=== PATIENT | female | born 1995 | race Caucasian/White ===

== ENCOUNTER 2023-11-15 17:58 | Inpatient (IN) | payer SELFPAY ==
--- NOTE | 2023-11-15 | US_ITS ---
The [address] [address] Patient Name: SOLOMON KHAN MRN: [facility]:[id number] date: 1995 Sex: F Assigned Patient Location: [facility] Current Patient Location: [facility] Accession/Order Number: [id number] Exam Date: 11/15/2023 19:00 Report Date: 11/15/2023 21:56 At the request of: KEYSHAWN LAMA Procedure: US OB cervical length US PELVIS: OB Greater than 14 weeks HISTORY: 28 year old G 1 P 0 AB 0 female presents for US evaluation. LMP: Not provided in the notes/history on order. Limited care with cramping TECHNIQUE: Ultrasound performed of the pelvis using static images with keith scale, M-mode and color doppler. This exam is performed in the emergency room setting to evaluate viability. As such, it is not protocoled to evaluate anatomy as that should be performed on an outpatient basis at the patient's FACILITY SUPERVISOR office. COMPARISON: None. FINDINGS: Summary: Number of Fetuses: Singlefetus in cephalic position. Placenta: Fundal weight: 3507 g +/- 26.04 g 7 lbs. 12 oz. +/- 1 pound 3 ounces heart: 137 bpm. Cervix: Cervical length: 1.7 cm. Cervix: Closed. JOSE L: Q1: 0.0 cm Q2: 3.4 cm Q3: 1.3 cm Q4: 2.1 cm Total JOSE L: 628 cm. (Normal 8-18 cm)* Largest pocket: (less than 8 cm) Measurements: BPD: 9.3 cm = 30 weeks, 0 days. HC: 33.7 cm = 30 weeks, 5 days. AC: 37 cm =38 weeks, 4 days. FL: 7.3 cm = 37 weeks, 2 days. Anatomy: Limited due to advanced gestational age. * Limited evaluation of the spine due to lie *Kidneys: *Bladder: *Stomach: US/US OB cervical length IMPRESSION: 1. Viable Chan fetus IUP 2. AUA Estimated Gestational Age by US: 38 weeks 3 days +/- 2 weeks 5 days by ultrasound. 3. Estimated due date by AUA: November 25, 2023. 4. Cervix is shortened 1.7 cm. For other findings re size and dates, please see summary above. Electronically authenticated by: TONY PHILLIPS Date: 11/15/2023 21:56
[2023-11-15 18:17] VITALS: BP 114/67; PULSE 74
--- NOTE | 2023-11-15 18:35 | US_ITS ---
[address] [address] Patient Name: SOLOMON KHAN MRN: [id number] date: 1995 Sex: F Assigned Patient Location: [facility] Current Patient Location: [facility] Accession/Order Number: [id number] Exam Date: 11/15/2023 19:00 Report Date: 11/15/2023 21:56 At the request of: KEYSHAWN LAMA Procedure: US OB anatomy US PELVIS: OB Greater than 14 weeks HISTORY: 28 year old G 1 P 0 AB 0 female presents for US evaluation. LMP: Not provided in the notes/history on order. Limited care with cramping TECHNIQUE: Ultrasound performed of the pelvis using static images with keith scale, M-mode and color doppler. This exam is performed in the emergency room setting to evaluate viability. 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 COMPARISON: None. FINDINGS: Summary: Number of Fetuses: Singlefetus in cephalic position. Placenta: Fundal weight: 3507 g +/- 26.04 g 7 lbs. 12 oz. +/- 1 pound 3 ounces heart: 137 bpm. Cervix: Cervical length: 1.7 cm. Cervix: Closed. JOSE L: Q1: 0.0 cm Q2: 3.4 cm Q3: 1.3 cm Q4: 2.1 cm Total JOSE L: 628 cm. (Normal 8-18 cm)* Largest pocket: (less than 8 cm) Measurements: BPD: 9.3 cm = 30 weeks, 0 days. HC: 33.7 cm = 30 weeks, 5 days. AC: 37 cm =38 weeks, 4 days. FL: 7.3 cm = 37 weeks, 2 days. Anatomy: Limited due to advanced gestational age. * Limited evaluation of the spine due to lie *Kidneys: *Bladder: *Stomach: US/US OB anatomy IMPRESSION: 1. Viable Chan fetus IUP 2. AUA Estimated Gestational Age by US: 38 weeks 3 days +/- 2 weeks 5 days by ultrasound. 3. Estimated due date by AUA: November 25, 2023. 4. Cervix is shortened 1.7 cm. For other findings re size and dates, please see summary above. Electronically authenticated by: TONY PHILLIPS Date: 11/15/2023 21:56
[2023-11-15 19:16] LABS: Basophils Percent Auto 0.4 % (0.2-2.0); Eosinophils Absolute Auto 0.1 10^3/uL (0.0-0.7); Eosinophils Percent Auto 0.7 % (0.9-7.0); Hematocrit 30.7 % (36.0-48.0); Hemoglobin 9.7 g/dL (12.0-16.0); Immature Granulocytes Abs Auto 0.02 10^3/uL (0.00-0.03); Immature Granulocytes Pct Auto 0.2 % (0.0-0.5); Lymphocytes Absolute Auto 1.5 10^3/uL (1.2-3.8); Lymphocytes Percent Auto 14.8 % (20.5-60.0); Mean Corpuscular HGB Conc 31.6 g/dL (29.9-35.2); Mean Corpuscular Hemoglobin 28.1 pg (26.7-34.0); Mean Platelet Volume 11.1 fL (9.5-13.5); Monocytes Absolute Auto 0.7 10^3/uL (0.3-0.8); Monocytes Percent Auto 6.6 % (1.7-12.0); Neutrophils Percent Auto 77.3 % (43.0-75.0); Platelet Count 295 10^3/uL (150-450); Red Blood Count 3.45 10^6/uL (4.20-5.40); Red Cell Distribution Width 15.5 % (11.0-15.0); White Blood Count 10.4 10^3/uL (4.0-11.0)
[2023-11-15 19:31] LABS: Estimated Average Glucose 120 mg/dL; Glycohemoglobin A1C 5.8 % (4.5-6.2)
[2023-11-15] MEDS: AMPICILLIN SODIUM 2,000 MG in 0.9 % SODIUM CHLORIDE 100 ML 200 MG IV (19:42)
[2023-11-15] MEDS: 0.9 % SODIUM CHLORIDE 1,000 ML 125 ML IV (19:43)
[2023-11-15 19:47] VITALS: BP 110/69; PULSE 65
[2023-11-15 21:47] VITALS: BP 110/70; PULSE 65
[2023-11-15] MEDS: OXYTOCIN/0.9 % SODIUM CHLORIDE 10 UNITS/500 ML PLAST..BAG 6 UNIT IV (22:13)
[2023-11-15 22:15] VITALS: BP 113/68; PULSE 77
[2023-11-15 23:15] VITALS: BP 110/63; PULSE 67
[2023-11-15 23:56] VITALS: BP 128/91; PULSE 63
[2023-11-16] VITALS (48 sets, daily range): BP systolic 96–177; BP diastolic 52–100; PULSE 63–84; TEMP 36.2–36.9; O2SAT 95–99
--- NOTE | 2023-11-16 00:53 | P.OBHP_ITS ---
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, poor history, 2-3 50% -2 History of Present care: none Ultrasounds: none Review of Systems ROS Status of ROS: other (limited dt south korean speaking only) Meds Home Medications and Allergies Home Medications ?Medication ?Instructions ?Recorded ?Confirmed ?Type No Known Home Medications 11/15/23 11/15/23 History Allergies Allergy/AdvReac Type Severity Reaction Status Date / Time No Known Drug Allergies Allergy Verified 11/15/23 18:35 Exam Constitutional Vital Signs, click to edit/add: Last Vital Signs Pulse 68 11/16/23 00:45 BP 116/60 11/16/23 00:45 Documenting provider has reviewed patient's vital signs: yes Common normals: no apparent distress Respiratory Common normals: normal respiratory effort and clear to auscultation bilaterally Cardio Common normals: regular rate and regular rhythm GI Common normals: Normal to inspection, nondistended, normoactive bowel sounds present Extremity Common normals: no calf tenderness Results Labs Labs: Short CBC 11/15/23 Range/Units 19:00 WBC 10.4 (4.0-11.0) 10^3/uL Hgb 9.7 L (12.0-16.0) g/dL Hct 30.7 L (36.0-48.0) % Plt Count 295 (150-450) 10^3/uL OB - A/P Assessment and Plan (1) Intrauterine : Assessment and Plan: recurrent variables, consent obtained, mmc reviewed, will proceed to or (2) Non-compliance:
[2023-11-16] MEDS: FAMOTIDINE/PF 20 MG/2 ML VIAL IV (00:56)
[2023-11-16] MEDS: CEFAZOLIN SODIUM/DEXTROSE,ISO 2 GM/50 ML PIGGYBACK IV ×2 (00:56→09:14)
[2023-11-16] MEDS: METOCLOPRAMIDE HCL 10 MG/2 ML VIAL IVP (00:56)
[2023-11-16] MEDS: CITRIC ACID/SODIUM CITRATE 30 ML SOLUTION ORACIT SHOHL'S SOLN PO (00:56)
[2023-11-16] MEDS: LACTATED RINGER'S SOLUTION 1,000 ML 50 ML IV ×2 (01:12→01:20)
--- NOTE | 2023-11-16 01:31 | PM.ONB ---
Brief Operative Note Date of procedure: 11/16/23 Pre-op diagnosis general: iup at 42 2/7wks, non reassuring heart tones Post-op diagnosis: same as pre-op Procedure: NAME OF PROCEDURE: [ section ] PROCEDURE: Patient was taken back to the Operating Room where she was given a spinal anesthesia with Duramorph without difficulty. She was prepped and draped in the normal sterile fashion. A Pfannenstiel skin incision was then made 2 cm above the symphysis pubis and carried down to underlying rectus fascia using a Bovie. The fascia was incised in the midline and extended laterally using Rutledge scissors. Two Kayy clamps were placed on the superior aspect of the fascia and dissected off the underlying rectus muscles. The same was performed on the inferior aspect as well. The muscles were then in the midline. Peritoneum was identified and entered bluntly. The peritoneum was then extended superiorly and inferiorly with good visualization of the bladder. The bladder blade was inserted. A low transverse incision was made on the patient's uterus and extended laterally digitally. The infant was then delivered atraumatically after the bladder blade was removed in the cephalic position. The cord was clamped and cut. Cord blood was obtained. The infant was handed off to awaiting team. The patient's placenta was spontaneously delivered. The uterus was then exteriorized. The uterus was cleared of all clots and debris. The bladder blade was reinserted. The patient's uterine incision was closed using #0 Vicryl in a running lock fashion. Excellent hemostasis was assured. The uterus was then returned to the patient's abdomen. The patient's abdomen was copiously irrigated using warm saline. Peritoneal gutters were cleared of all clots and debris. Again excellent hemostasis was assured. The patient's peritoneum was closed using 3-0 Vicryl in a running fashion. The patient's fascia was closed using #0 Vicryl in a running fashion. The patient's skin was closed using 4-0 Vicryl subcuticularly. The patient tolerated the procedure well. Sponge, lap, and needle counts were correct x2. The patient was taken to the Recovery Room in stable condition. Anesthesia: spinal Surgeon: Agustin Lanier E/M Engineer: Tami Santos Estimated blood loss (mL): 575 Pathology: other (placenta) Condition: stable Disposition: PACU
--- NOTE | 2023-11-16 01:32 | PM.OBPRCCS ---
Procedure Pre-op/Post-op diagnoses: Pre-Op/Post-Op Diagnoses Operation Date: 11/16/23 01:00 <No data on this case meets the specified criteria> Procedure: Procedures Operation Date: 11/16/23 01:00 Actual Procedure Side Surgeon p Not Applicable Agustin Lanier DO Employee Development Manager: Tami Santos Estimated blood loss (mL): 575 Disposition: PACU Anesthesia type: Spinal
[2023-11-16] MEDS: OXYTOCIN/0.9 % SODIUM CHLORIDE 20 UNITS/1,000 ML PLAST..BAG 125 UNIT IV (03:44)
[2023-11-16] MEDS: KETOROLAC TROMETHAMINE 30 MG/ML VIAL IVP ×3 (08:00→22:05)
--- NOTE | 2023-11-16 08:26 | PC.NURSE ---
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 Pt did agree and consent with the use buyer internship. MEKHI, RN
[2023-11-16] MEDS: ACETAMINOPHEN 500 MG TABLET 1000 MG PO ×2 (11:13→20:03)
--- NOTE | 2023-11-16 19:09 | W.PC.ACHO ---
Registration Status: ADM IN Primary Language: Greenlandic Preferred Language: Greenlandic Report given to Mary [id number]. Active Medications Generic Name Dose Route Start Last Admin Trade Name Freq PRN Reason Stop Dose Admin Acetaminophen 1,000 mg 11/16/23 09:00 11/16/23 11:13 Acetaminophen 500 Mg Tablet PO 11/18/23 09:01 1,000 mg Q8H YANNI Administration Al Hydroxide/Mg Hydroxide 2,400 mg 11/16/23 01:33 Magnesium Hydroxide 2,400 Mg/10 Ml Oral.Susp PO Q6H PRN Dyspepsia Carboprost Tromethamine 250 mcg 11/15/23 18:35 Carboprost Tromethamine 250 Mcg/Ml 1 Ml Vial IM 11/17/23 18:37 Q15M PRN Bleeding Diphenhydramine HCl 25 mg 11/16/23 01:33 Diphenhydramine Hcl 50 Mg/Ml Vial IV 11/17/23 01:35 Q6H PRN Itching Diphtheria/Pertussis/Tetanus Vacc 0.5 ml 11/18/23 09:00 Adacel Diph,Pertuss(Acell),Tet Vac/Pf 0.5 Ml Adult Syringe IM 11/18/23 09:01 .ONCE ONE Docusate Sodium 100 mg 11/17/23 09:00 Docusate Sodium 100 Mg Capsule PO BID YANNI Tranexamic Acid 1,000 mg/ 110 mls @ 440 mls/hr 11/15/23 18:35 Sodium Chloride IV ONCE PRN Uterine Bleeding Sodium Chloride 1,000 mls @ 125 mls/hr 11/15/23 19:00 11/15/23 19:43 Sodium Chloride 0.9% 1,000 Ml IV 125 mls/hr .Q8H YANNI Administration Ampicillin 1,000 mg/ Sodium 50 mls @ 100 mls/hr 11/15/23 22:45 Chloride IV Q4H YANNI Oxytocin/Sodium Chloride 20 units in 1,000 mls @ 125 mls/hr 11/15/23 18:35 Pitocin 20 Unit/1,000 Ml-Ns IV Q8H PRN POST DELIVERY Oxytocin/Sodium Chloride 10 units in 500 mls @ 6 mls/hr 11/15/23 22:00 11/15/23 23:05 Pitocin 10 Unit/500 Ml-Ns IV 4 milliunit/min TITR YANNI 12 mls/hr Infusion Protocol 2 MILLIUNIT/MIN Lactated Ringer's 1,000 mls @ 50 mls/hr 11/16/23 01:30 11/16/23 01:12 Lactated Ringers IV 50 mls/hr .Q20H YANNI Administration Lactated Ringer's 1,000 mls @ 50 mls/hr 11/16/23 01:30 11/16/23 01:20 Lactated Ringers IV 50 mls/hr .Q20H YANNI Administration Sodium Chloride 1,000 mls @ 125 mls/hr 11/16/23 02:00 Sodium Chloride 0.9% 1,000 Ml IV .Q8H YANNI Promethazine HCl 25 mg/ Sodium 51 mls @ 204 mls/hr 11/16/23 01:33 Chloride IV Q6H PRN Nausea And Vomiting Ibuprofen 800 mg 11/17/23 07:30 Ibuprofen 400 Mg Tablet PO Q6H YANNI Ketorolac Tromethamine 30 mg 11/16/23 07:30 11/16/23 15:18 Ketorolac Tromethamine 30 Mg/Ml Vial IVP 11/16/23 19:31 30 mg Q6H YANNI Administration Lidocaine 5 ml 11/15/23 18:35 Lidocaine Viscous 2% 15 Ml Solution TOPICAL 11/17/23 18:39 ONCE PRN Pain Lidocaine 1 ml 11/15/23 18:35 Lidocaine Hcl 1% 200 Mg/20 Ml Mdv INJ 11/17/23 18:39 ONCE PRN Pain Measles/Mumps/Rubella Vaccine Live 0.5 ml 11/18/23 09:00 Measles,Mumps,Rubella Vacc/Pf 0.5 Ml Vial SQ 11/18/23 09:01 .ONCE ONE Methylergonovine Maleate 0.2 mg 11/15/23 18:35 Methylergonovine Maleate 0.2 Mg/Ml Ampule IM 11/17/23 18:37 ONCE PRN Uterine Contractility/Contract Methylergonovine Maleate 0.2 mg 11/15/23 18:35 Methylergonovine Maleate 0.2 Mg Tablet PO 11/17/23 18:37 Q4H PRN Uterine Contractility/Contract Misoprostol 600 mcg 11/15/23 18:35 Misoprostol 100 Mcg Tablet PO 11/17/23 18:37 ONCE PRN Uterine Bleeding Misoprostol 800 mcg 11/15/23 18:35 Misoprostol 100 Mcg Tablet SL 11/17/23 18:37 ONCE PRN Uterine Bleeding Misoprostol 1,000 mcg 11/15/23 18:35 Misoprostol 100 Mcg Tablet NM 11/17/23 18:37 ONCE PRN Uterine Bleeding Nalbuphine HCl 10 mg 11/15/23 18:35 Nalbuphine Hcl 10 Mg/Ml Ampule IV Q3H PRN Pain Ondansetron HCl 4 mg 11/15/23 18:35 Ondansetron Pf 4 Mg/2 Ml Vial IV Q6H PRN Nausea And Vomiting Ondansetron HCl 4 mg 11/15/23 18:35 Ondansetron 4 Mg Rapdis Tablet SL Q6H PRN Nausea And Vomiting Ondansetron HCl 4 mg 11/16/23 01:33 Ondansetron Pf 4 Mg/2 Ml Vial IV Q6H PRN Nausea And Vomiting Ondansetron HCl 4 mg 11/16/23 01:33 Ondansetron 4 Mg Rapdis Tablet PO Q6H PRN Nausea And Vomiting Oxycodone HCl 5 mg 11/16/23 01:33 Oxycodone Hcl 5 Mg Tablet PO Q4H PRN Breakthrough Pain Oxytocin 10 unit 11/15/23 18:35 Oxytocin 10 Unit/Ml Vial IM 11/17/23 18:37 ONCE PRN PPH Senna 17.2 mg 11/16/23 20:00 Sennosides 8.6 Mg Tablet PO QHS PRN Constipation Simethicone 80 mg 11/16/23 01:33 Simethicone 80 Mg Tab.Chew PO QID PRN Abdominal Distention Diet Category Date Time Status Regular Consistency Diet Diet 11/16/23 01:34 Active Consults Category Date Time Status Consult to Industrial Relations Manager Routine Cons 11/16/23 Ordered Respiratory Pulse Oximetry 98 Pulse Oximetry 98 Pulse Oximetry 97 Pulse Oximetry 98 Pulse Oximetry 97 Pulse Oximetry 97 Pulse Oximetry 97 Pulse Oximetry 97 Pulse Oximetry 97 Pulse Oximetry 97 Pulse Oximetry 96 Pulse Oximetry 96 Pulse Oximetry 96 Pulse Oximetry 97 Pulse Oximetry 97 Pulse Oximetry 97 Pulse Oximetry 96 Pulse Oximetry 97 Pulse Oximetry 96 Pulse Oximetry 96 Pulse Oximetry 97 Pulse Oximetry 96 Pulse Oximetry 97 Pulse Oximetry 97 Pulse Oximetry 97 Pulse Oximetry 97 Pulse Oximetry 98 Pulse Oximetry 98 Pulse Oximetry 97 Pulse Oximetry 98 Pulse Oximetry 96 Pulse Oximetry 95 Pulse Oximetry 95 Pulse Oximetry 95 Pulse Oximetry 96 Pulse Oximetry 96 Pulse Oximetry 97 Pulse Oximetry 99 Pulse Oximetry 98 Oxygen Delivery Method Room Air Oxygen Delivery Method Room Air Oxygen Delivery Method Room Air Oxygen Delivery Method Room Air Oxygen Delivery Method Room Air Oxygen Delivery Method Room Air Oxygen Delivery Method Room Air Oxygen Delivery Method Room Air Oxygen Delivery Method Room Air Bowels Bowel Pattern No Bowel Movement Renal Bladder Pattern Continent Bladder Pattern Continent Catheter Urinary Catheter Date of 11/16/23 Insertion [Urethral] Urinary Catheter Time of 00:25 Insertion [Urethral] Date Urinary Catheter Removed 11/16/23 [Urethral] Time Urinary Catheter 14:00 Discontinued [Urethral]
[2023-11-17 01:05] VITALS: BP 120/69; PULSE 73; TEMP 36.5
[2023-11-17] MEDS: ACETAMINOPHEN 500 MG TABLET 1000 MG PO (04:40)
[2023-11-17 06:09] LABS: HBsAg Screen Negative (Negative); HCV Ab Non Reactive (Non Reactive); HIV Ab/p24 Ag Screen Non Reactive (Non Reactive)
[2023-11-17 06:25] LABS: Basophils Percent Auto 0.2 % (0.2-2.0); Eosinophils Percent Auto 0.1 % (0.9-7.0); Hemoglobin 7.3 g/dL (12.0-16.0); Immature Granulocytes Abs Auto 0.07 10^3/uL (0.00-0.03); Immature Granulocytes Pct Auto 0.4 % (0.0-0.5); Lymphocytes Absolute Auto 2.8 10^3/uL (1.2-3.8); Lymphocytes Percent Auto 17.1 % (20.5-60.0); Mean Corpuscular HGB Conc 30.8 g/dL (29.9-35.2); Mean Corpuscular Hemoglobin 27.7 pg (26.7-34.0); Mean Corpuscular Volume 89.8 fL (81.0-99.0); Mean Platelet Volume 10.7 fL (9.5-13.5); Monocytes Absolute Auto 1.1 10^3/uL (0.3-0.8); Monocytes Percent Auto 6.6 % (1.7-12.0); Neutrophils Absolute Auto 12.3 10^3/uL (1.4-6.5); Neutrophils Percent Auto 75.6 % (43.0-75.0); Platelet Count 265 10^3/uL (150-450); Red Blood Count 2.64 10^6/uL (4.20-5.40); Red Cell Distribution Width 15.6 % (11.0-15.0); White Blood Count 16.3 10^3/uL (4.0-11.0)
[2023-11-17 06:27] LABS: Hematocrit 23.7 % (36.0-48.0)
[2023-11-17] MEDS: DOCUSATE SODIUM 100 MG CAPSULE PO ×2 (08:10→22:34)
[2023-11-17] MEDS: IBUPROFEN 400 MG TABLET 800 MG PO ×3 (08:10→22:34)
[2023-11-17 08:11] LABS: Rubella Antibodies, IgG <0.90 index (Immune >0.99)
[2023-11-17 08:13] VITALS: BP 109/59; PULSE 82
--- NOTE | 2023-11-17 08:18 | P.OBPN_ITS ---
OB - PN: Subj Subjective Patient comments: no complaints [place] status: doing well and bottle Exam Constitutional Vital Signs, click to edit/add: Last Vital Signs Temp 97.7 F 11/17/23 01:05 Pulse 82 11/17/23 08:13 Resp 16 11/16/23 18:00 BP 109/59 11/17/23 08:13 Pulse Ox 98 11/16/23 04:45 O2 Del Method Room Air 11/17/23 01:05 Documenting provider has reviewed patient's vital signs: yes Common normals: no apparent distress, oriented x3 and well nourished General appearance: cooperative, comfortable and well kempt Orientation/consciousness: Yes awake, Yes oriented to person, Yes oriented to place and Yes oriented to time Eye Common normals: EOMs intact bilaterally Neck & C-Spine Common normals: full ROM Lymph Lymphatic: no lymphadenopathy noted Chest Common normals: inspection of chest normal Respiratory Common normals: normal respiratory effort Effort & inspection: able to speak in complete sentences Cardio Common normals: regular rate and regular rhythm Rate: regular rate Rhythm: regular rhythm GI Common normals: Normal to inspection, nondistended, normoactive bowel sounds present Common normals: no CVA tenderness Back & Pelvis Common normals: no CVA tenderness Extremity Common normals: normal to inspection Neuro Common normals: oriented x3 Sensorium/orientation: awake, alert, oriented to person, oriented to place and oriented to time Psych Common normals: mental status grossly normal Attitude: calm Results Labs Labs: Short CBC 11/17/23 Range/Units 06:14 WBC 16.3 H (4.0-11.0) 10^3/uL Hgb 7.3 L (12.0-16.0) g/dL Hct 23.7 L* (36.0-48.0) % Plt Count 265 (150-450) 10^3/uL Urinary Catheter Management Urinary Catheter Management Urethral: Cath placed during this visit: yes, but has since been removed by the nurse Insertion date: 11/16/23 Insertion time: 00:25 Removal date: 11/16/23 Removal time: 14:00 OB - PN: A/P Assessment and Plan (1) Intrauterine : (2) Non-compliance: Plan - day: 1 Plan: routine postop care Time Spent with Patient Time: Total time spent is greater than 50% in coordination of care (as documented) at patient's floor/unit and/or counseling patient: Total time spent with greater than 50% in coordination of care (as documented) at patient's floor/unit and/or counseling patient: less than 15 minutes
[2023-11-17 08:35] VITALS: BP 104/62; TEMP 36.6
[2023-11-17 11:09] LABS: Rapid Plasma Reagin, Quant Non Reactive titer (NonRea<1:1)
--- NOTE | 2023-11-17 13:46 | SWNOTE1 ---
SW met with pt to discuss financial concerns. Pt does speak only Lithuanian. Nursing assisted SW with portfolio management marketing on tablet. The father of the baby is involved and pt voiced she has good support at home. Pt voiced she does have everything she needs at home for baby. SW did ask her about financial assistance and pt does not have insurance. Pt would like to speak to someone in regards to financial assistance. SW to reach out to [facility]. Pt did have questions about the paperwork she was filling out, SW tried to assist as best as possible. Nursing came in room and assisted as well as it was paperwork for certificate. At this time pt has no other questions or needs from SW. SW reached out to patient financial services and they have the paperwork completed, just need pt's signature. They will be going up to room today.
[2023-11-17 16:33] VITALS: BP 107/60; PULSE 86
[2023-11-17 22:30] VITALS: BP 113/58; PULSE 86; TEMP 36.9
[2023-11-17 22:32] VITALS: BP 113/58; PULSE 86
[2023-11-17] MEDS: FERROUS SULFATE 325 MG TABLET PO (22:34)
[2023-11-18] MEDS: IBUPROFEN 400 MG TABLET 800 MG PO ×2 (04:41→15:50)
[2023-11-18 07:47] VITALS: BP 119/62; PULSE 71
[2023-11-18 07:59] VITALS: BP 119/62; PULSE 71; TEMP 36.4
--- NOTE | 2023-11-18 08:08 | P.OBPN_ITS ---
OB - PN: Subj Subjective Patient comments: no complaints and pain well controlled [place] status: doing well Exam Constitutional Vital Signs, click to edit/add: Last Vital Signs Temp 97.6 F 11/18/23 07:59 Pulse 71 11/18/23 07:59 Resp 15 11/18/23 07:59 BP 119/62 11/18/23 07:59 Pulse Ox 98 11/16/23 04:45 O2 Del Method Room Air 11/17/23 22:30 Documenting provider has reviewed patient's vital signs: yes Common normals: no apparent distress Respiratory Common normals: normal respiratory effort and clear to auscultation bilaterally Cardio Common normals: regular rate and regular rhythm GI Common normals: Normal to inspection, nondistended, normoactive bowel sounds present Extremity Common normals: no clubbing, cyanosis or edema and no calf tenderness Urinary Catheter Management Urinary Catheter Management Urethral: Cath placed during this visit: yes, but has since been removed by the nurse Insertion date: 11/16/23 Insertion time: 00:25 Removal date: 11/16/23 Removal time: 14:00 OB - PN: A/P Assessment and Plan (1) Intrauterine : (2) Non-compliance: Plan - day: 2 Plan: routine postop care, discharge home and other (fu 1wk) Time Spent with Patient Time: Total time spent is greater than 50% in coordination of care (as documented) at patient's floor/unit and/or counseling patient: Total time spent with greater than 50% in coordination of care (as documented) at patient's floor/unit and/or counseling patient: less than 15 minutes
[2023-11-18] MEDS: ACETAMINOPHEN 500 MG TABLET 1000 MG PO (09:15)
[2023-11-18] MEDS: DOCUSATE SODIUM 100 MG CAPSULE PO (09:15)
[2023-11-18] MEDS: FERROUS SULFATE 325 MG TABLET PO (09:15)
== END 2023-11-18 16:45 | disposition home or self-care (01) | DRG 788 ==
PROVIDERS: Admitting Provider Obstetrics & Gynecology; Visit Provider Obstetrics & Gynecology
PROC: 10D00Z1 Extraction of Products of Conception, Low, Open Approach (ICD-10-PCS; CPT 59514; principal; 2023-11-16 01:00)
DX: O48.0 Post-term pregnancy (principal); O76 Abnormality in fetal heart rate and rhythm complicating labor and delivery; Z3A.42 42 weeks gestation of pregnancy; Z37.0 Single live birth; Z91.199 Patient's noncompliance with other medical treatment and regimen due to unspecified reason
CPT/HCPCS: 36415; 51702; 59050; 64488; 76805; 76817; 83036; 85025; 86592; 86762; 86803; 86850; 86900; 86901; 87340; 87389; 88307; 94667; 94668; 96365; 96375; 96376; J0131; J0290; J0665; J0690; J1100; J1885; J2274; J2405; J2590; J2765